=== PATIENT | male | born 1955 | race Caucasian/White ===

== ENCOUNTER → 2016-05-27 | Outpatient (CLI) | payer OTHER ==
[2016-05-27 08:57] LABS: MEAN CORPUSCULAR HGB CONC 34.6 g/dl (32.0-36.5); MEAN CORPUSCULAR VOLUME 89.6 fl (80.0-96.0); RED CELL DISTRIBUTION WIDTH 12.6 % (11.5-14.5); WHITE BLOOD COUNT 5.8 K/mm3 (4.0-10.0)
[2016-05-27 09:20] LABS: ALBUMIN 3.9 GM/DL (3.2-5.2); ALKALINE PHOSPHATASE 97 U/L (45-117); ALT/SGPT 49 U/L (12-78); ANION GAP 8 MEQ/L (8-16); AST/SGOT 26 U/L (15-37); BILIRUBIN,TOTAL 0.5 MG/DL (0.2-1.0); BLOOD UREA NITROGEN 14 MG/DL (7-18); CALCIUM LEVEL 8.2 MG/DL (8.5-10.1); CARBON DIOXIDE LEVEL 28 MEQ/L (21-32); CHLORIDE LEVEL 108 MEQ/L (98-107); CHOLESTEROL LEVEL 165 MG/DL (<200); FERRITIN 69 NG/ML (26-388); GLOMERULAR FILTRATION RATE > 60.0 (>56); GLUCOSE, FASTING 85 MG/DL (70-105); PERCENT SATURATION 41.7 % (19.7-37.4); POTASSIUM SERUM 4.1 MEQ/L (3.5-5.1); SODIUM LEVEL 144 MEQ/L (136-145); TOTAL IRON BINDING CAPACITY 345 UG/DL (250-450); TOTAL PROTEIN 6.2 GM/DL (6.4-8.2); TRIGLYCERIDES LEVEL 131 MG/DL (<150)
[2016-05-28 10:56] LABS: VITAMIN B12 LEVEL 515 PG/ML (247-911)
== END ==
LOC: M LAB 08:35
DX: K91.2 Postsurgical malabsorption, not elsewhere classified (principal); E55.9 Vitamin D deficiency, unspecified; R73.01 Impaired fasting glucose

== ENCOUNTER 2016-06-30 19:48 | Emergency (ER) | payer OTHER ==
[~2016-06-30] VITALS: Ht 172.7 cm; Wt 104.3 kg
[2016-06-30] MEDS ORDERED: CITA20TA4 (20:21)
[2016-06-30] MEDS ORDERED: NEXI40CA PO (20:21)
[2016-06-30] MEDS ORDERED: BUPR150T3 (20:21)
[2016-06-30] MEDS ORDERED: ONDANSETRON 4MG/2ML VIAL (J2405) IV ONE (21:45)
[2016-06-30] MEDS ORDERED: KETOROLAC 30 MG/ML VIAL (J1885) IV ONE (21:45)
--- NOTE | 2016-06-30 22:30 | REPUSA ---
CLINICAL HISTORY: Right side abdominal pain. TECHNIQUE: CT abdomen and pelvis without contrast. COMPARISON: November 03, 2011 CT ABDOMEN WITHOUT CONTRAST: Lung bases: No lung base infiltrate or effusion. Stomach: Surgical changes of gastric bypass. Liver: No intrahepatic ductal dilation. Gallbladder: Normally distended. Pancreas: No pancreatic duct dilation. Bowel loops: Nondistended. Spleen: Normal size. Adrenals: Normal size. Right kidney: Minute 2 mm stone without hydronephrosis. Left kidney: No stones or hydronephrosis. The stones demonstrated on the prior exam are no longer vis ible possibly status post lithotripsy. Aorta: Normal caliber. Peritoneum: No free air. CT PELVIS WITHOUT CONTRAST: Colon: Nondistended. Appendix: Normal appendix is seen. Bladder: Normally distended. Pelvic organs: Unremarkable. Peritoneum: No fluid. Skeleton: No acute findings. IMPRESSION: Right-sided nephrolithiasis without ureteral stones or hydronephrosis.
[2016-06-30 22:38] LABS: BASO % 0.7 % (0.0-1.0); EOS # 0.3 K/mm3 (0.0-0.50); EOS % 3.8 % (0.0-3.0); LARGE UNSTAINED CELL # 0.2 K/mm3 (0.0-0.4); LARGE UNSTAINED CELL % 2.3 % (0.0-4.0); LYMPH # 2.6 K/mm3 (1.5-4.5); LYMPH % 32.7 % (24.0-44.0); MEAN CORPUSCULAR HEMOGLOBIN 31.8 pg (27.0-33.0); MEAN CORPUSCULAR HGB CONC 35.3 g/dl (32.0-36.5); MEAN CORPUSCULAR VOLUME 90.2 fl (80.0-96.0); MONO # 0.5 K/mm3 (0.0-0.8); MONO % 6.2 % (0.0-5.0); NEUTROPHILS # 4.1 K/mm3 (1.8-7.7); NEUTROPHILS % 54.4 % (36.0-66.0); PLATELET COUNT, AUTOMATED 199 k/mm3 (150-450); RED CELL DISTRIBUTION WIDTH 12.6 % (11.5-14.5); WHITE BLOOD COUNT 7.5 K/mm3 (4.0-10.0)
[2016-06-30 23:11] VITALS: BP 142/79
[2016-06-30 23:14] LABS: ALBUMIN/GLOBULIN RATIO 1.54 (1.00-1.93); ALKALINE PHOSPHATASE 88 U/L (45-117); ALT/SGPT 37 U/L (12-78); ANION GAP 8 MEQ/L (8-16); AST/SGOT 22 U/L (15-37); BILIRUBIN,DIRECT 0.1 MG/DL (0.0-0.2); BILIRUBIN,TOTAL 0.4 MG/DL (0.2-1.0); BLOOD UREA NITROGEN 16 MG/DL (7-18); CALCIUM LEVEL 8.5 MG/DL (8.5-10.1); CARBON DIOXIDE LEVEL 29 MEQ/L (21-32); CHLORIDE LEVEL 108 MEQ/L (98-107); CREATININE FOR GFR 1.01 MG/DL (0.70-1.30); GLOMERULAR FILTRATION RATE > 60.0 (>56); GLUCOSE, FASTING 84 MG/DL (70-105); POTASSIUM SERUM 4.3 MEQ/L (3.5-5.1); SODIUM LEVEL 145 MEQ/L (136-145); TOTAL PROTEIN 6.6 GM/DL (6.4-8.2)
== END 2016-06-30 23:52 | disposition home or self-care (01) ==
LOC: M ED 20:39
DX: N23 Unspecified renal colic (principal); E86.0 Dehydration; K21.9 Gastro-esophageal reflux disease without esophagitis; F32.9 Major depressive disorder, single episode, unspecified; Z98.84 Bariatric surgery status; Z87.442 Personal history of urinary calculi; Z79.899 Other long term (current) drug therapy; Z88.0 Allergy status to penicillin; Z88.5 Allergy status to narcotic agent; Z88.6 Allergy status to analgesic agent
CPT/HCPCS: 74176; 80048; 80076; 81001; 85025; 87086; 96374; 96375; 99283; J1885

== ENCOUNTER → 2017-05-02 | Outpatient (CLI) | payer OTHER | LOC: M WUC 09:28 | DX: R05 Cough (principal) | CPT/HCPCS: 71046 ==

== ENCOUNTER 2018-02-02 13:48 | Emergency (ER) | payer OTHER | END 2018-02-02 14:37 | disposition home or self-care (01) | LOC: M ED 13:48 | DX: S67.02XA Crushing injury of left thumb, initial encounter (principal); W27.8XXA Contact with other nonpowered hand tool, initial encounter; Y92.009 Unspecified place in unspecified non-institutional (private) residence as the place of occurrence of the external cause; Y93.89 Activity, other specified; I10 Essential (primary) hypertension; K21.9 Gastro-esophageal reflux disease without esophagitis; Z88.8 Allergy status to other drugs, medicaments and biological substances; Z88.0 Allergy status to penicillin; Z88.5 Allergy status to narcotic agent; Z79.899 Other long term (current) drug therapy | CPT/HCPCS: 73140 ==

== ENCOUNTER 2018-03-25 08:02 | Day surgery (SDC) | payer OTHER ==
[~2018-03-25 08:02] MED LIST: PROPOFOL 200 MG/20 ML VIAL As Ordered
[2018-03-25] MEDS ORDERED: NS 1,000 ML IV (09:00)
== END 2018-03-25 10:16 | disposition home or self-care (01) ==
LOC: M OPP 10:16
DX: Z12.11 Encounter for screening for malignant neoplasm of colon (principal); Q43.8 Other specified congenital malformations of intestine
CPT/HCPCS: 45378

== ENCOUNTER → 2019-05-25 | Outpatient (CLI) | payer OTHER ==
[~2019-05-25] MED LIST changes: +BUPR150T3; +CALCCHW8 PO; +CEPH250T PO; +CITA20TA6; +CLAR10CA3 PO; +MULT1CHW44 PO; +MULT1TAB10 PO; +NEXI40CA PO; -PROPOFOL 200 MG/20 ML VIAL As Ordered; +TYLE325T5 PO; +VITA100067 PO
[2019-05-25 13:03] LABS: HEMATOCRIT 43.5 % (42.0-52.0); HEMOGLOBIN 15.1 g/dl (13.5-17.5); MEAN CORPUSCULAR HEMOGLOBIN 31.4 pg (27.0-33.0); MEAN CORPUSCULAR HGB CONC 34.7 g/dl (32.0-36.5); MEAN CORPUSCULAR VOLUME 90.4 fl (80.0-96.0); PLATELET COUNT, AUTOMATED 221 10^3/uL (150-450); RED BLOOD COUNT 4.81 10^6/uL (4.30-6.10); WHITE BLOOD COUNT 4.7 10^3/uL (4.0-10.0)
[2019-05-25 13:17] LABS: ALT/SGPT 35 U/L (12-78); BILIRUBIN,TOTAL 0.6 MG/DL (0.2-1.0); BLOOD UREA NITROGEN 21 MG/DL (7-18); CALCIUM LEVEL 8.8 MG/DL (8.8-10.2); CARBON DIOXIDE LEVEL 30 MEQ/L (21-32); CHLORIDE LEVEL 108 MEQ/L (98-107); CHOLESTEROL LEVEL 139 MG/DL (<200); CHOLESTEROL RISK RATIO 2.895 (<5); CREATININE FOR GFR 1.05 MG/DL (0.70-1.30); FERRITIN 49 NG/ML (26-388); GLOMERULAR FILTRATION RATE > 60.0 (>49); GLUCOSE, FASTING 81 MG/DL (70-100); HDL CHOLESTEROL 48 MG/DL (>40); IRON (FE) 112 UG/DL (65-175); LDL CHOLESTEROL 70 MG/DL (<100); NON-HDL-C 91 MG/DL; PERCENT SATURATION 33.4 % (19.7-50.0); POTASSIUM SERUM 3.8 MEQ/L (3.5-5.1); SODIUM LEVEL 142 MEQ/L (136-145); TOTAL IRON BINDING CAPACITY 335 UG/DL (250-450); TOTAL PROTEIN 6.6 GM/DL (6.4-8.2); TRIGLYCERIDES LEVEL 106 MG/DL (<150)
[2019-05-25 13:25] LABS: FOLATE 16.2 NG/ML (>5.4); TOTAL 25(OH) VITAMIN D 39.7 NG/ML (30.0-100.0)
[2019-05-25 13:31] LABS: VITAMIN B12 LEVEL 953 PG/ML (247-911)
[2019-05-25 13:36] LABS: HEMOGLOBIN A1c 5.1 %
== END ==
LOC: M LAB 10:56
PROVIDERS: ATTEND Physician Assistant Medical
DX: K91.2 Postsurgical malabsorption, not elsewhere classified (principal); Z13.0 Encounter for screening for diseases of the blood and blood-forming organs and certain disorders involving the immune mechanism; Z98.84 Bariatric surgery status; Z13.220 Encounter for screening for lipoid disorders

== ENCOUNTER → 2020-01-17 | Outpatient (CLI) | payer OTHER ==
[~2020-01-17] MED LIST changes: +OYST1TAB PO
== END ==
LOC: M LABSMTC 10:19
PROVIDERS: ATTEND Anesthesiology
DX: Z01.812 Encounter for preprocedural laboratory examination (principal); Z20.828 Contact with and (suspected) exposure to other viral communicable diseases
CPT/HCPCS: C9803; U0003

== ENCOUNTER 2020-01-22 08:51 | Day surgery (SDC) | payer OTHER ==
[~2020-01-22] VITALS: Ht 172.7 cm; Wt 107.2 kg
[~2020-01-22 08:51] MED LIST changes: +NS 1,000 ML IV ONE
[2020-01-22] MEDS ORDERED: LIDOCAINE 2% 100MG/5ML SDV (FOR ANES.) As Ordered ONE (08:58)
[2020-01-22] MEDS ORDERED: propofoL 200 MG/20 ML VIAL As Ordered ONE ×2 (08:58→10:31)
--- NOTE | 2020-01-22 10:56 | ROOR ---
Patient Name: Arcenio Arias Procedure Date: 01/22/2020 10:16 AM Date of : 1955 Age: 64 Room: [facility] Gender: Male Note Status: Finalized Procedure: Colonoscopy Indications: High risk colon cancer surveillance: Personal history of colonic polyps. Hx recent anal fissure/pain, blood Providers: Yosvany GARZON MD Referring MD: RAS WHITTEN MD Requesting Provider: Medicines: Monitored Anesthesia Care Complications: No immediate complications. Procedure: Pre-Anesthesia Assessment: - The heart rate, respiratory rate, oxygen saturations, blood pressure, adequacy of pulmonary ventilation, and response to care were monitored throughout the procedure. The Colonoscope was introduced through the anus and advanced to 5 cm into the ileum. The colonoscopy was performed without difficulty. The patient tolerated the procedure well. The quality of the bowel preparation was good. Findings: The perianal and digital rectal examinations were normal. Internal hemorrhoids were found during retroflexion. The hemorrhoids were medium-sized. The colon (entire examined portion) was redundant. The colon (entire examined portion) appeared normal. Impression: - Internal hemorrhoids. (Fissure is not seen today.) - Redundant colon. - The entire colon is otherwise normal. - No specimens collected. Recommendation: - Repeat colonoscopy in 5 years for surveillance. Yosvany Garzon MD Yosvany GARZON MD 01/22/2020 10:55:42 AM Electronically signed by Yosvany GARZON MD Number of Addenda: 0 Note Initiated On: 01/22/2020 10:16 AM Estimated Blood Loss: Estimated blood loss: none.
[2020-01-22 11:15] VITALS: BP 134/83
== END 2020-01-22 11:29 | disposition home or self-care (01) ==
LOC: M OPP 08:51
PROVIDERS: ATTEND Internal Medicine Gastroenterology
DX: Z12.11 Encounter for screening for malignant neoplasm of colon (principal); Z86.010 Personal history of colon polyps; K64.8 Other hemorrhoids; Q43.8 Other specified congenital malformations of intestine; R12 Heartburn; F41.9 Anxiety disorder, unspecified; F32.9 Major depressive disorder, single episode, unspecified; M19.90 Unspecified osteoarthritis, unspecified site; K21.9 Gastro-esophageal reflux disease without esophagitis; Z88.0 Allergy status to penicillin; Z88.1 Allergy status to other antibiotic agents; Z88.5 Allergy status to narcotic agent; Z79.899 Other long term (current) drug therapy; Z98.84 Bariatric surgery status; Z82.49 Family history of ischemic heart disease and other diseases of the circulatory system; Z83.3 Family history of diabetes mellitus; Z80.52 Family history of malignant neoplasm of bladder

== ENCOUNTER → 2020-07-27 | Outpatient (CLI) | payer OTHER ==
[~2020-07-27] MED LIST changes: +BUPR150T12; -BUPR150T3; -NS 1,000 ML IV ONE
[2020-07-27 09:48] LABS: HEMATOCRIT 45.8 % (42.0-52.0); HEMOGLOBIN 15.8 g/dl (13.5-17.5); MEAN CORPUSCULAR HEMOGLOBIN 31.3 pg (27.0-33.0); MEAN CORPUSCULAR HGB CONC 34.5 g/dl (32.0-36.5); MEAN CORPUSCULAR VOLUME 90.9 fl (80.0-96.0); PLATELET COUNT, AUTOMATED 219 10^3/uL (150-450); RED BLOOD COUNT 5.04 10^6/uL (4.30-6.10)
[2020-07-27 10:24] LABS: HEMOGLOBIN A1c 4.9 %
[2020-07-27 12:19] LABS: ALT/SGPT 38 U/L (12-78); BILIRUBIN,TOTAL 0.6 MG/DL (0.2-1.0); BLOOD UREA NITROGEN 15 MG/DL (7-18); CALCIUM LEVEL 8.7 MG/DL (8.8-10.2); CARBON DIOXIDE LEVEL 28 MEQ/L (21-32); CHLORIDE LEVEL 107 MEQ/L (98-107); CHOLESTEROL LEVEL 165 MG/DL (<200); CREATININE FOR GFR 0.95 MG/DL (0.70-1.30); FERRITIN 27 NG/ML (26-388); FOLATE 16.2 NG/ML (>5.4); GLOMERULAR FILTRATION RATE > 60.0 (>49); GLUCOSE, FASTING 85 MG/DL (70-100); HDL CHOLESTEROL 60 MG/DL (>40); IRON (FE) 138 UG/DL (65-175); LDL CHOLESTEROL 79 MG/DL (<100); NON-HDL-C 105 MG/DL; PERCENT SATURATION 36.9 % (19.7-50.0); POTASSIUM SERUM 4.1 MEQ/L (3.5-5.1); SODIUM LEVEL 141 MEQ/L (136-145); TOTAL 25(OH) VITAMIN D 26.7 NG/ML (30.0-100.0); TOTAL IRON BINDING CAPACITY 374 UG/DL (250-450); TOTAL PROTEIN 6.6 GM/DL (6.4-8.2); TRIGLYCERIDES LEVEL 132 MG/DL (<150); VITAMIN B12 LEVEL 1130 PG/ML (247-911)
== END ==
LOC: M LAB 08:45
PROVIDERS: ATTEND Internal Medicine
DX: K91.2 Postsurgical malabsorption, not elsewhere classified (principal)

== ENCOUNTER 2020-10-13 15:00 | Inpatient (IN) | payer OTHER ==
[~2020-10-13] VITALS: Ht 172.7 cm; Wt 109.0 kg
[~2020-10-13 15:00] MED LIST changes: -BUPR150T12; +BUPR150T12 PO; -CITA20TA6; +CITA20TA6 PO
[2020-10-13] MEDS ORDERED: CLIN150C15 PO (15:17)
[2020-10-13] MEDS ORDERED: PLAV1TAB2 PO (15:17)
[2020-10-13] MEDS ORDERED: GABA-282 PO (15:17)
[2020-10-13] MEDS ORDERED: VANCOMYCIN HCL 2,000 MG in D5W 500 ML IV ONE (19:05)
[2020-10-13] MEDS ORDERED: MORPHINE 4 MG/ML 1ML VIAL/SYRINGE (J2270) IV ONE (19:15)
--- NOTE | 2020-10-13 19:40 | REP ---
INDICATION: NECROSIS/S/P SURGERY. COMPARISON: None. TECHNIQUE: Four views of the 1st 3 digits of the toes of the right foot FINDINGS: There is an age undetermined fracture of the medial base of the proximal phalanx of the 2nd digit. There appears to been some sort of surgery involving the 3rd digit. I have no details or priors. There appears to been partial amputation of the proximal phalanx of the 3rd digit but with preservation of the middle and distal phalanges. Degenerative changes are seen involving the 1st metatarsophalangeal joint. IMPRESSION: As above. Obtain priors. <Electronically signed by Jalil Miranda > 10/13/201935
[2020-10-13 19:55] LABS: BASO % 0.5 % (0.0-1.0); EOS # 0.2 10^3/uL (0.0-0.5); EOS % 2.3 % (0.0-3.0); HEMATOCRIT 45.9 % (42.0-52.0); HEMOGLOBIN 15.8 g/dl (13.5-17.5); LYMPH # 1.5 10^3/uL (1.5-5.0); LYMPH % 18.5 % (24.0-44.0); MEAN CORPUSCULAR HEMOGLOBIN 31.4 pg (27.0-33.0); MEAN CORPUSCULAR HGB CONC 34.4 g/dl (32.0-36.5); MEAN CORPUSCULAR VOLUME 91.3 fl (80.0-96.0); MONO # 0.6 10^3/uL (0.0-0.8); NEUTROPHILS # 5.7 10^3/uL (1.5-8.5); NEUTROPHILS % 71.4 % (36.0-66.0); PLATELET COUNT, AUTOMATED 229 10^3/uL (150-450); RED BLOOD COUNT 5.03 10^6/uL (4.30-6.10)
[2020-10-13] MEDS ORDERED: VANCOMYCIN HCL 1,000 MG, VIAL MATE ADAPTER 1 EACH in NS 250 ML IV ONE ×2 (20:00→21:00)
--- NOTE | 2020-10-13 20:06 | REPVR ---
PROCEDURE INFORMATION: Exam: US Duplex Right Lower Extremity Veins, Limited Exam date and time: 10/13/2020 8:01 PM Age: 65 years old Clinical indication: Swelling (edema) of limb; Lower extremity, right; Prior surgery; Surgery date: <1 month; Surgery type: Patient had surgery to RT toes on 09/30/2020; Additional info: Swelling pain, recent SX, RO clot TECHNIQUE: Imaging protocol: Real-time Duplex ultrasound of the Right Lower Extremity with 2-D farooq scale, color Doppler flow and spectral waveform analysis with image documentation. Limited exam was focused on the right lower extremity veins. COMPARISON: CR Toes 10/13/2020 6:17 PM FINDINGS: Right deep veins: Unremarkable. The common femoral, femoral, proximal profunda femoral and popliteal veins are patent without thrombus. Normal Doppler waveforms. Normal compressibility and/or augmentation response. Right superficial veins: Unremarkable. Saphenofemoral junction is patent without thrombus. Soft tissues: Lower leg edema. IMPRESSION: Lower leg edema. No DVT. Electronically signed by: Arthur Jimenez On 10/13/2020 20:06:12 PM
[2020-10-13 20:19] LABS: RSV AMPLIFICATION NEGATIVE (NEGATIVE)
[2020-10-13 20:24] LABS: ALT/SGPT 36 U/L (12-78); BILIRUBIN,DIRECT 0.2 MG/DL (0.0-0.2); BILIRUBIN,TOTAL 0.7 MG/DL (0.2-1.0); BLOOD UREA NITROGEN 17 MG/DL (7-18); CALCIUM LEVEL 8.6 MG/DL (8.8-10.2); CARBON DIOXIDE LEVEL 31 MEQ/L (21-32); CHLORIDE LEVEL 106 MEQ/L (98-107); CREATININE FOR GFR 0.93 MG/DL (0.70-1.30); GLOMERULAR FILTRATION RATE > 60.0 (>49); GLUCOSE, FASTING 89 MG/DL (70-100); POTASSIUM SERUM 4.3 MEQ/L (3.5-5.1); SODIUM LEVEL 141 MEQ/L (136-145); TOTAL PROTEIN 6.9 GM/DL (6.4-8.2)
[2020-10-13 20:41] LABS: ERYTHROCYTE SEDIMENTATION RATE 7 mm/hr (0-20)
[2020-10-13] MEDS ORDERED: CALC-211 PO (20:44)
[2020-10-13] MEDS ORDERED: VITMTA PO (20:44)
[2020-10-13] MEDS ORDERED: CLIN300C6 PO (20:44)
[2020-10-13] MEDS ORDERED: D31000TA2 PO (20:44)
[2020-10-13] MEDS ORDERED: ACET1TAB55 PO (20:44)
[2020-10-13] MEDS ORDERED: ONDANSETRON 4MG/2ML VIAL IV PRN (20:55)
[2020-10-13] MEDS ORDERED: MOM 30ML SUSPENSION UDC PO PRN (20:55)
[2020-10-13] MEDS ORDERED: MAALOX 30 ML SUSP *UDC PO PRN (20:55)
[2020-10-13] MEDS ORDERED: ACETAMINOPHEN TAB 650MG DOSE (2X325MG) PO PRN (20:55)
--- NOTE | 2020-10-13 21:10 | HPEPDOC ---
[facility] Medical History & Physical Date of Admission Oct 13, 2020 Date of Service: Oct 13, 2020 History and Physical CHIEF COMPLAINT: R foot pain HISTORY OF PRESENT ILLNESS: 66 yo M with a PMHX of GERD, nephrolithiasis, Meni ere's disease, presented to ER with c/o pain, erythema and black color of 2nd R toe, with worsening erythema extending to midfoot. Patient states he underwent surgery with roll slicing machine tender Dr. Rivas in [place] on 09/30/20 for hammertoe correction of 2nd toe, as well as removal of bone spur? or possible amputation of distal phalanx of 3rd toe. He developed worsening pain on 2nd toe on 10/09/20 but did examine foot as was told not to remove dressings until follow up on 10/12/20. On evaluation by Dr. Rivas, concern for cellulitis, was started on clindamycin as well as plavix for suspected thrombosis. Concern for gangrene of distal 2nd toe with possible osteomyelitis and surrounding cellulitis. Patient had no fever or leukocytosis on presentation. Was given empiric vancomycin. Dr. Dunn was consulted from ER. MRI foot ordered to al for possible osteomyelitis. Patient will be admitted to hospitalist service. PAST MEDICAL HISTORY: GERD anger/behavioural disorder nephrolithiasis bilateral Meniere's disease PAST SURGICAL HISTORY: Bilateral carpal tunnel release hx of gastric bypass SOCIAL HISTORY: former smoker, quite 30 years ago denies etoh use, denies illicit drug use FAMILY HISTORY: Hx of DM in mother, Hx of CHF in father, Brother - CAD, s/p cabg, prostate cancer Brother - bladder cancer ALLERGIES: Please see below. REVIEW OF SYSTEMS: 10 point ROS completed, relevant findings are noted in the HPI. HOME MEDICATIONS: Please see below. PHYSICAL EXAMINATION: VITAL SIGNS: please see below GENERAL APPEARANCE: comfortable in bed, non toxic appearance HEENT: PERRLA, EOMI, MMM CARDIOVASCULAR: RRR, normal S1, S2 LUNGS: CTAB, no wheeze, no rales. ABDOMEN: soft, non tender, BS+, non distended. MUSCULOSKELETAL: R foot 2nd toe distal necrosis/gangrene, 3rd to swollen, erythematous with fresh suture line. Area of erythema extending from the base of 2nd-4th toes to approximately mid foot. EXTREMITIES: No edema. Pulses 2+ bilaterally in both feet NEUROLOGICAL: no focal neuro deficit, CN2-12 intact PSYCHIATRIC: calm, pleasant, cooperative LABORATORY DATA: See below. IMAGING: RLE venous duplex (10/13/20): Lower leg edema. No DVT R toe XR (10/13/20): FINDINGS: There is an age undetermined fracture of the medial base of the proximal phalanx of the 2nd digit. There appears to been some sort of surgery involving the 3rd digit. I have no details or priors. There appears to been partial amputation of the proximal phalanx of the 3rd digit but with preservation of the middle and distal phalanges. Degenerative changes are seen involving the 1st metatarsophalangeal joint. IMPRESSION: As above. Obtain priors. MICROBIOLOGY: Please see below. ASSESSMENT: 66 yo M with a PMHX of GERD, nephrolithiasis, Meniere's disease, presented to ER with c/o pain, erythema and black color of 2nd R toe, with wo rsening erythema extending to midfoot. Possible post surgical complication. MRI foot pending to eval for osteomyelitis. On empiric vancomycin. Dr. Dunn consulted. . PLAN: R foot cellulitis with gangrene, possible osteomyelitis - s/p R 2nd toe hammertoe surgery, 3rd toe bone spurr excision, possible distal phalanx amp with Dr. Rivas in [place]. Patient followed up on 10/12/20, at which time hardware was removed, and due to erythema and suspected cellulitis, patient was started on clindamycin and plavix? thought to be due to a possible clot? imaging was not performed. - concern for worsening infection, possible osteomyelitis - venous duplex negative for DVT - MRI foot ordered - will trend inflammatory markers. - Dr. Dunn consulted from ER. Recommended to stop plavix. Will see patient on 10/14/20 - will make patient NPO at midnight - s/p vancomycin in ER, will continue - f/u blood cultures GERD - c/w pantoprazole Hx of anger/behaviours - continue home medications: citalopram, bupropion DVT ppx: SCDs. TEDs. Hold heparin as possibility of OR on 10/14/20. Dispo: pending clinical improvement Vital Signs Vital Signs Date Time Temp Pulse Resp B/P (MAP) Pulse Ox O2 Delivery O2 Flow Rate FiO2 10/13/20 20:10 98.2 84 20 130/74 (92) 97 146/77 (100) 10/13/20 19:55 Room Air Laboratory Data Labs 24H Laboratory Tests 2 10/13/20 19:31: Immature Granulocyte % (Auto) 0.3, Neutrophils (%) (Auto) 71.4H, Lymphocytes (%) (Auto) 18.5L, Monocytes (%) (Auto) 7.0, Eosinophils (%) (Auto) 2.3, Basophils (%) (Auto) 0.5, Neutrophils # (Auto) 5.7, Lymphocytes # (Auto) 1.5, Monocytes # (Auto) 0.6, Eosinophils # (Auto) 0.2, Basophils # (Auto) 0.0, Nucleated Red Blood Cells % (auto) 0.0, Erythrocyte Sedimentation Rate 7, Anion Gap 4L, Glomerular Filtration Rate > 60.0, Lactic Acid Level 1.1, Calcium Level 8.6L, Total Bilirubin 0.7, Direct Bilirubin 0.2, Aspartate Amino Transf (AST/SGOT) 20, Alanine Aminotransferase (ALT/SGPT) 36, Alkaline Phosphatase 104, C-Reactive Protein, Quantitative 2.10H, Total Protein 6.9, Albumin 4.0, Albumin/Globulin Ratio 1.4, Coronavirus (COVID-19)(PCR) NEGATIVE, Influenza Type A (RT-PCR) NEGATIVE, Influenza Type B (RT-PCR) NEGATIVE, Respiratory Syncytial Virus (PCR) NEGATIVE CBC/BMP Laboratory Tests 10/13/20 19:31 Microbiology Microbiology 10/13/20 Blood Culture, Received Pending 10/13/20 Blood Culture, Received Pending Home Medications Scheduled Bupropion Hcl (Bupropion Xl) 150 Mg Tab, 150 MG PO BID Calcium Carbonate (Calcium) 600 Mg Tablet, 600 MG PO DAILY Cholecalciferol (Vitamin D3) (Vitamin D3) 1,000 Unit Tablet, 1,000 UNITS PO DAILY Citalopram Hydrobromide (Citalopram HBr) 20 Mg Tab, 20 MG PO DAILY Clindamycin HCl (Clindamycin HCl) 300 Mg Capsule, 300 MG PO BID STARTED 10/12/20 FOR 20 DAYS Clopidogrel Bisulfate (Plavix) 75 Mg Tablet, 75 MG PO DAILY Esomeprazole Magnesium (Nexium) 40 Mg Cap, 40 MG PO DAILY Gabapentin (Gabapentin) 300 Mg Capsule, 300 MG PO TID Loratadine (Claritin) 10 Mg Cap, 10 MG PO DAILY Multivitamins (Thera M Plus Tablet) 1 Each Tablet, 1 TAB PO DAILY Scheduled PRN Acetaminophen (Acetaminophen) 325 Mg Tablet, 650 MG PO QID PRN for PAIN LEVEL 1- 4 Allergies Coded Allergies: Penicillins (Verified Allergy, Severe, ANAPHYLAXIS, 10/13/20) ampicillin (Verified Allergy, Severe, ANAPHYLAXIS, 10/13/20) codeine (Verified Allergy, Severe, THROAT SWELLING, DIFF BREATHING, 10/13/20) hydrocodone (Verified Allergy, Severe, THROAT SWELLING, DIFF BREATHING, 10/13/20) oxycodone (Verified Allergy, Severe, SOB, DIFF BREATHING, 10/13/20) levofloxacin (Verified Allergy, Unknown, anaphylaxis, 10/13/20) A-FIB/CHADSVASC A-FIB History Current/History of A-Fib/PAF?: No LEYLA MALAGON MD Oct 13, 2020 21:10
[2020-10-13] MEDS ORDERED: traMADol 50 MG TAB PO PRN (21:40)
[2020-10-13 23:20] VITALS: BP 152/74
[2020-10-13] MEDS: buPROPion **XL** TABLET 150MG (WELLBUTRIN XL) PO SCH (23:32)
[2020-10-13] MEDS: GABAPENTIN 300 MG CAP PO SCH (23:32)
[2020-10-13] MEDS: DOCUSATE SODIUM 100MG CAPSULE PO SCH (23:33)
[2020-10-14] MEDS ORDERED: KETOROLAC TROMETHAMINE 10 MG TAB PO PRN (00:20)
--- NOTE | 2020-10-14 00:54 | REPVR ---
PROCEDURE INFORMATION: Exam: MR Right Lower Extremity Other Than Joint Without Contrast; Foot Exam date and time: 10/13/2020 11:17 PM Age: 65 years old Clinical indication: Pain and condition or disease; Other: Black toe; Right; Prior surgery; Surgery date: 3-7 days post-operative; Patient HX: Hammer toe correction with pin in 2nd toe on RT foot 09/30/20. 2 days ago toe started loosing feeling swelling and going black, redness in dorsal surface of RT foot by toes; Additional info: Black toe R foot 2nd digit TECHNIQUE: Imaging protocol: MR of the Right lower extremity without contrast. Exam focused on the foot. COMPARISON: Right toe radiographs October 13, 2020. FINDINGS: SOFT TISSUES There is subcutaneous fluid sensitive signal hyperintensity circumferentially around the foot, greatest dorsal laterally and extending proximal to the level of imaging. This could be secondary to soft tissue edema or cellulitis. There is fluid sensitive signal hyperintensity along plantar intermuscular fascia as well as plantar musculature and intrinsic muscles of the foot. This could be secondary to soft tissue injury or fasciitis and myositis. Soft tissue gas is not reliably evaluated by this technique, although not obviously identified. No superficial or deep drainable fluid collection or abscess is seen. Some fluid is noted along the flexor tendons but no significant circumferential tendon sheath fluid to suggest tenosynovitis. No evidence of a tendon rupture is seen. The plantar fascia is intact. No plantar fascial fibroma seen. The distal Achilles tendon is intact without evidence of degeneration. There is mild retrocalcaneal bursitis. ARTICULAR No articular malalignment is seen. The Lisfranc ligament appears intact. Small posterior subtalar joint effusion noted. Moderately large tibiotalar joint effusion noted. If there is any suspicion for early septic involvement of a joint, aspiration and culture is advised for diagnosis. OSSEOUS Distal tibiofibular congruency is maintained. There is a 7.6 mm by 16.3 mm osteochondral defect along the medial talar dome, likely related to an old injury. There is some reactive marrow edema within the adjacent talus. Articular cartilage otherwise at the tibiotalar joint is preserved. Subtalar cartilage is preserved. No evidence of an osseous tarsal coalition seen. Mild degenerative changes of the hindfoot and midfoot noted. Mild ganglion cystic change noted within the calcaneus adjacent to the intertarsal ligament attachment. There is mild focal fluid sensitive signal hyperintensity along the dorsomedial aspect of the cuboid bone of uncertain significance. This may be reactive or may represent a bone contusion if there has been recent trauma. There is subchondral fluid sensitive signal hyperintensity along both sides of the 2nd tarsometatarsal articulation consistent with degenerative change. Cystic changes are noted at the bases of the 2nd and 3rd metatarsals consistent with degenerative change. 1st digit Osteoarthritic changes and bony proliferative changes noted at the 1st metatarsal head. There is deformity of the 1st proximal phalanx with an intrinsic cyst noted but no surrounding edema. This could be postoperative, posttraumatic and/or degenerative. No signal changes in the 1st toe to suggest osteomyelitis. 2nd digit There is fluid sensitive signal hyperintensity within the distal aspect of the 2nd metatarsal, predominantly at the head with heterogeneous loss of normal anticipated T1 signal. Differential would include posttraumatic change, early avascular necrosis without subchondral collapse or osteomyelitis. There is a moderate-sized 2nd metatarsophalangeal joint effusion. If there is any suspicion for septic involvement of a joint, aspiration and culture is advised. There is mild fluid sensitive signal hyperintensity within the 2nd proximal phalanx which could be posttraumatic or related to osteomyelitis/infection. There is a small 2nd distal interphalangeal joint effusion. 3rd digit There is demarcated heterogeneous fluid sensitive signal hyperintensity involving the 3rd metatarsal head. This could be posttraumatic or related to or early avascular necrosis. Osteomyelitis cannot be excluded. There is fluid sensitive signal hyperintensity within the 3rd proximal phalanx which could be postsurgical or related to osteomyelitis. There appears to have been resection of the 3rd proximal phalangeal head. There is a small amount of focal fluid between the resected portion of the 3rd proximal phalanx and the adjacent middle phalanx. This is nonspecific but infected fluid cannot be excluded. There is a small 3rd distal interphalangeal joint effusion. 4th digit There is heterogeneous areas of fluid sensitive signal hyperintensity involving the base and distal shaft and head of the 4th proximal phalanx. There is fluid sensitive signal hyperintensity throughout the 4th middle phalanx. There is loss of corresponding anticipated T1 marrow signal. Although this could be posttraumatic, appearance is worrisome for osteomyelitis. There is a small 4th distal interphalangeal joint effusion. 5th digit There are some marginal fluid sensitive signal changes at the lateral aspect of the 5th metatarsal head which may be related to osteoarthritis or early inflammatory/erosive change. No signal changes are seen within the 5th digit to suggest osteomyelitis. IMPRESSION: There are soft tissue signal changes which could be related to edema or cellulitis, fasciitis and myositis. Clinical and laboratory correlation is advised. For improved specificity, consideration could be given to pre and post contrast T1 fat saturated imaging or white blood cell scan. There are osseous signal changes within the 2nd digit, 3rd digit and 4th digit as discussed above, worrisome for osteomyelitis. Differential as discussed above. There is a small amount of focal fluid between the resected distal 3rd proximal phalanx and adjacent middle phalanx which could be postoperative but infected fluid cannot be excluded. Joint effusions are noted as discussed above. Although no bone destruction is seen, if there is suspicion for early septic involvement of a joint, aspiration and culture is advised. Likely chronic osteochondral defect at the medial talar dome with mild surrounding reactive marrow edema. Vascularity to the foot/toes is not evaluated by this technique. Given the patient's history of "black toe", if vascular compromise is suspected as a cause consider CT angiogram or dedicated angiogram/runoff for further evaluation. Other causes of gangrene should also be considered as they cannot be deciphered by this study. Other findings discussed above. Electronically signed by: Simon Skelton On 10/14/2020 00:54:07 AM
[2020-10-14] MEDS ORDERED: ACETAMINOPHEN TAB 650MG DOSE (2X325MG) PO PRN (02:20)
[2020-10-14] MEDS: VANCOMYCIN HCL 1,000 MG, VIAL MATE ADAPTER 1 EACH in NS 250 ML IV SCH ×3 (03:17→20:14)
[2020-10-14] MEDS: ACETAMINOPHEN 500 MG TAB PO PRN (03:17)
[2020-10-14 05:51] LABS: BASO # 0.1 10^3/uL (0.0-0.2); BASO % 0.6 % (0.0-1.0); EOS # 0.2 10^3/uL (0.0-0.5); EOS % 3.1 % (0.0-3.0); HEMATOCRIT 40.1 % (42.0-52.0); HEMOGLOBIN 13.9 g/dl (13.5-17.5); LYMPH % 25.8 % (24.0-44.0); MEAN CORPUSCULAR HEMOGLOBIN 31.6 pg (27.0-33.0); MEAN CORPUSCULAR HGB CONC 34.7 g/dl (32.0-36.5); MEAN CORPUSCULAR VOLUME 91.1 fl (80.0-96.0); MONO # 0.7 10^3/uL (0.0-0.8); MONO % 9.2 % (2.0-8.0); NEUTROPHILS # 4.7 10^3/uL (1.5-8.5); NEUTROPHILS % 60.9 % (36.0-66.0); PLATELET COUNT, AUTOMATED 188 10^3/uL (150-450); WHITE BLOOD COUNT 7.7 10^3/uL (4.0-10.0)
[2020-10-14] MEDS ORDERED: KETOROLAC 30 MG/ML 1ML VIAL IV SCH (06:00)
[2020-10-14 06:11] LABS: ERYTHROCYTE SEDIMENTATION RATE 10 mm/hr (0-20)
[2020-10-14 06:12] LABS: ALBUMIN 3.3 GM/DL (3.2-5.2); ALT/SGPT 29 U/L (12-78); BILIRUBIN,TOTAL 0.7 MG/DL (0.2-1.0); BLOOD UREA NITROGEN 17 MG/DL (7-18); CALCIUM LEVEL 8.6 MG/DL (8.8-10.2); CARBON DIOXIDE LEVEL 32 MEQ/L (21-32); CHLORIDE LEVEL 105 MEQ/L (98-107); CHOLESTEROL LEVEL 156 MG/DL (<200); CHOLESTEROL RISK RATIO 2.888 (<5); CREATININE FOR GFR 0.98 MG/DL (0.70-1.30); GLOMERULAR FILTRATION RATE > 60.0 (>49); GLUCOSE, FASTING 91 MG/DL (70-100); HDL CHOLESTEROL 54 MG/DL (>40); LDL CHOLESTEROL 86 MG/DL (<100); NON-HDL-C 102 MG/DL; POTASSIUM SERUM 4.4 MEQ/L (3.5-5.1); SODIUM LEVEL 139 MEQ/L (136-145); TOTAL PROTEIN 6.2 GM/DL (6.4-8.2); TRIGLYCERIDES LEVEL 78 MG/DL (<150)
[2020-10-14] MEDS ORDERED: NALOXONE INJ 0.4MG/1ML VIAL (J2310 PER 1MG) IV PRN (07:55)
[2020-10-14] MEDS ORDERED: D5W/0.45% SODIUM CHLORIDE 1,000 ML IV SCH (07:55)
[2020-10-14 08:00] VITALS: BP 146/79
[2020-10-14] MEDS ORDERED: HYDROmorphone 2 MG TAB PO ONE (08:00)
[2020-10-14] MEDS ORDERED: HYDROMORPHONE HCL 0.5 MG/ 0.5 ML SYRINGE (J1170 PER 1) IV ONE (08:00)
[2020-10-14] MEDS: VITAMIN D 1,000 INTERNATIONAL UNITS TABLET PO SCH (08:13)
[2020-10-14] MEDS: LORATADINE 10 MG TAB PO SCH (08:13)
[2020-10-14] MEDS: MULTIVITAMINS/MINERALS THERAP 1 TAB PO SCH (08:13)
[2020-10-14] MEDS: buPROPion **XL** TABLET 150MG (WELLBUTRIN XL) PO SCH ×2 (08:13→20:14)
[2020-10-14] MEDS: CitaloPRAM (CeleXA) 20 MG TAB PO SCH (08:13)
[2020-10-14] MEDS: PANTOPRAZOLE 40MG VIAL (C9113 PER 1) IV SCH ×2 (08:13→20:14)
[2020-10-14] MEDS: DOCUSATE SODIUM 100MG CAPSULE PO SCH ×2 (08:13→20:15)
[2020-10-14] MEDS: GABAPENTIN 300 MG CAP PO SCH ×3 (08:13→20:15)
[2020-10-14] MEDS ORDERED: PANTOPRAZOLE 40MG TAB (PROTONIX) PO SCH (09:00)
[2020-10-14 09:28] VITALS: BP 124/73
[2020-10-14] MEDS ORDERED: LEVALBUTEROL 1.25 MG/0.5 ML CONCENTRATE NEB NEB ONE (09:35)
--- NOTE | 2020-10-14 09:49 | REP ---
INDICATION: nonhealing gangrenous right 2nd toe. COMPARISON: None. TECHNIQUE: Bilateral lower extremity arterial Doppler sonography. FINDINGS: TYSON is a normal bilaterally measured at 1.2 on the right and 1.2 on the left. Triphasic and biphasic arterial Doppler waveforms are noted throughout the lower extremity arterial tree bilaterally. Minimal plaquing is seen. No high-grade stenosis or occlusion is seen. Right lower extremity arterial Doppler velocity chart: Right ACUTE SPECIALIST PSV 68 cm/S Profundal 68 Proximal SFA 114 Mid SFA 88 Distal SFA 88 Popliteal 80 Proximal ALAN 78 Tibial-peroneal trunk 60 Proximal TRIMMER MACHINE 85 Distal TRIMMER MACHINE 81 Distal ALAN 87 Left lower extremity arterial Doppler velocity chart: Left ACUTE SPECIALIST PSV 86 cm/S Profundal 81 Proximal SFA 95 Mid SFA 82 Distal SFA 75 Popliteal 62 Proximal ALAN 65 Tibial-peroneal trunk 45 Proximal TRIMMER MACHINE 40 Distal TRIMMER MACHINE 76 Distal ALAN 52 IMPRESSION: No high-grade stenosis or occlusion. <Electronically signed by Roman Neil > 10/14/20 [id number]
[2020-10-14] MEDS: SUCRALFATE 1 GM TAB PO SCH ×4 (09:54→20:14)
[2020-10-14] MEDS ORDERED: methylPREDNISolone 125MG 2ML VIAL IV ONE (10:00)
[2020-10-14] MEDS ORDERED: diphenhydrAMINE 50MG/ML VIAL (J1200) IV ONE (10:00)
[2020-10-14] MEDS: KETOROLAC 30 MG/ML 1ML VIAL IV SCH ×3 (10:00→21:57)
[2020-10-14] MEDS ORDERED: LEVALBUTEROL 1.25 MG/0.5 ML CONCENTRATE NEB INH PRN (10:30)
[2020-10-14] MEDS ORDERED: HYDROmorphone 2 MG TAB PO PRN (12:00)
--- NOTE | 2020-10-14 12:22 | IPN ---
PROGRESS NOTE DATE: 10/13/2020 SUBJECTIVE: The patient complains of 10/10 pain in right foot without any radiation. No fever, chills overnight. NPO for amputation of the right 2nd toe today due to gangrene by Dr. Dunn. No other complaints this morning. OBJECTIVE: Temperature 98.9, pulse 80, respiratory rate 18, blood pressure 152/74, and 97% on room air. Generally awake, alert, oriented to person, place, and time; answering questions appropriately. No jugular venous distension (JVD), thyromegaly, cervical lymphadenopathy. Moist mucous membranes. Lungs are clear to auscultation. No wheezing, rales or rhonchi. Heart: S1, S2, sinus rhythm. Abdomen is soft, nontender, nondistended. Positive bowel sounds. Extremities: Right foot with gangrenous 2nd toe. Erythema noted on the dorsum of the foot midway into the mid foot. Diminished pulses bilaterally. Skin warm, dry and well perfused. Patient has a black eschar of the right 2nd toe. LABORATORY DATA AND IMAGING STUDIES: Microbiology all reviewed. ASSESSMENT AND PLAN: This is a 66-year-old male admitted on October 13 with history of reflux, nephrolithiasis, Meniere's disease, former smoker (quit 30 years ago), was seen by film writer, Dr. Rivas in [place], on 09/30/2020 for hammertoe correction of the 2nd toe and removal of a bone spur, and possible amputation of distal phalanx of the 3rd toe, developed worsening and pain of the 2nd toe on 10/09/2020 with follow up as outpatient on 10/12; however, patient began to have increasing erythema, pain and was started on clindamycin and Plavix for suspected thrombosis. Patient's 2nd toe became gangrenous with possible osteomyelitis and underlying cellulitis and was sent to the emergency room for amputation. 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 IMPRESSION: 1. 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 Patient is to have amputation today by film writer, Dr. Dunn, and has been kept NPO, IV fluids and hypoglycemic protocol. 2. Chronic neuropathy, on Neurontin; depression, on Wellbutrin regimen and antiemetics. Holding off on deep vein thrombosis (DVT) prophylaxis since the patient is going to the operating room. MTDD
[2020-10-14] MEDS ORDERED: ACETAMINOPHEN 500 MG TAB PO PRN (12:40)
--- NOTE | 2020-10-14 13:31 | CR ---
CONSULTATION DATE: 10/14/2020 REASON FOR CONSULTATION: Right foot infection. HISTORY OF PRESENT ILLNESS: Arcenio Arias is a 65-year-old male who had recent hammertoe surgery by Dr. Rivas in [place], date was performed 09/30/2020. He states he followed with her a few days after the surgery and states the foot was doing well, however on subsequent follow-up he had developed worsening pain and states the toe became more discolored. He had a K-wire in the second toe which was removed by Dr. Rivas in her office on the . He had worsening pain and went to the ER for evaluation. PAST MEDICAL HISTORY: Significant for GERD, nephrolithiasis and Meniere's disease. PAST SURGICAL HISTORY: Gastric bypass and carpal tunnel release. SOCIAL HISTORY: Former smoker. Denies alcohol or other drug use. FAMILY HISTORY: Noncontributory. ALLERGIES: Penicillin, ampicillin, codeine, hydrocodone, Levaquin and oxycodone. PHYSICAL EXAMINATION: Vitals: He remained afebrile. LABS: White blood cell count is 8 on admission, 7.7 today, ESR is 10. CRP marginally elevated at 2.2, hemoglobin A1c is 5. IMAGING STUDIES: Toe x-rays: On the third toe there is resection of the head of the proximal phalanx which is consistent with a third toe arthroplasty, on the second toe there is apparent fusion of the proximal and middle phalanx which is consistent with a hammertoe arthrodesis. Previous surgical correction noted to the proximal phalanx of the hallux. There is no obvious erosive changes that would be unexpected given patient's surgical procedures. MRI was performed with findings suggestive of cellulitis. There are bony changes which the radiologist states are concerning for osteomyelitis, however these are largely most likely related to the hammertoe procedure. Arterial studies were ordered which were all essentially normal and a venous ultrasound was negative for DVT. Lower extremity examination: There is erythema and edema to the right forefoot. There is swelling and redness to the right second and third toes where surgery was performed and at the distal aspect of the second toe there are gangrenous changes with virtually no capillary refill to the distal toe. ASSESSMENT: This is a 65-year-old male who underwent recent hammertoe surgery with cellulitis and gangrene to the right second toe. TREATMENT: At this time it appears the gangrene was more related to surgical changes than infection however I cannot say this with definity as I had not seen his previous postoperative changes so I cannot discern this entirely. I do not feel that the gangrene requires urgent resection as it does not appear to be wet, it is more vascular gangrene than infections. I would continue the current antibiotics Vancomycin. Will monitor him closely. In terms of pain control, options are limited given his allergies to codeine. Start Lidocaine patch and Tylenol and can continue with Toradol. Will follow. He may ultimately require second toe amputation but ideally this should be performed when some of the infection has improved or there is risk of requiring further amputation if things do not heal well. Will follow.
[2020-10-14] MEDS: LIDOCAINE 5% (LIDODERM) PATCH TD SCH (13:52)
[2020-10-14 16:00] VITALS: BP 135/76
[2020-10-14 20:00] VITALS: BP 140/80
[2020-10-14] MEDS: **NOTE PATIENT COMMENT** MISC XX SCH (21:56)
[2020-10-15] VITALS: BP 143/83
[2020-10-15] MEDS: VANCOMYCIN HCL 1,000 MG, VIAL MATE ADAPTER 1 EACH in NS 250 ML IV SCH ×3 (04:42→20:28)
[2020-10-15] MEDS: KETOROLAC 30 MG/ML 1ML VIAL IV SCH ×4 (04:43→22:08)
[2020-10-15 05:56] LABS: BASO % 0.1 % (0.0-1.0); HEMATOCRIT 41.5 % (42.0-52.0); LYMPH # 0.9 10^3/uL (1.5-5.0); LYMPH % 9.1 % (24.0-44.0); MEAN CORPUSCULAR HEMOGLOBIN 30.8 pg (27.0-33.0); MEAN CORPUSCULAR HGB CONC 33.7 g/dl (32.0-36.5); MEAN CORPUSCULAR VOLUME 91.4 fl (80.0-96.0); MONO # 0.6 10^3/uL (0.0-0.8); MONO % 5.5 % (2.0-8.0); NEUTROPHILS # 8.7 10^3/uL (1.5-8.5); NEUTROPHILS % 84.7 % (36.0-66.0); PLATELET COUNT, AUTOMATED 202 10^3/uL (150-450); RED BLOOD COUNT 4.54 10^6/uL (4.30-6.10); WHITE BLOOD COUNT 10.3 10^3/uL (4.0-10.0)
[2020-10-15 06:17] LABS: ALBUMIN 3.5 GM/DL (3.2-5.2); ALT/SGPT 26 U/L (12-78); BILIRUBIN,TOTAL 0.5 MG/DL (0.2-1.0); BLOOD UREA NITROGEN 21 MG/DL (7-18); C REACTIVE PROTEIN QUANTITATIV 2.93 MG/DL (0.00-0.30); CALCIUM LEVEL 8.7 MG/DL (8.8-10.2); CARBON DIOXIDE LEVEL 30 MEQ/L (21-32); CHLORIDE LEVEL 107 MEQ/L (98-107); CREATININE FOR GFR 0.84 MG/DL (0.70-1.30); GLOMERULAR FILTRATION RATE > 60.0 (>49); GLUCOSE, FASTING 117 MG/DL (70-100); MAGNESIUM LEVEL 2.4 MG/DL (1.8-2.4); POTASSIUM SERUM 4.9 MEQ/L (3.5-5.1); SODIUM LEVEL 140 MEQ/L (136-145); TOTAL PROTEIN 6.2 GM/DL (6.4-8.2)
[2020-10-15 07:50] VITALS: BP 121/73
[2020-10-15 08:04] LABS: ERYTHROCYTE SEDIMENTATION RATE 12 mm/hr (0-20)
[2020-10-15] MEDS: SUCRALFATE 1 GM TAB PO SCH ×4 (08:08→20:29)
[2020-10-15] MEDS: buPROPion **XL** TABLET 150MG (WELLBUTRIN XL) PO SCH ×2 (08:08→20:29)
[2020-10-15] MEDS: LORATADINE 10 MG TAB PO SCH (08:08)
[2020-10-15] MEDS: MULTIVITAMINS/MINERALS THERAP 1 TAB PO SCH (08:08)
[2020-10-15] MEDS: CitaloPRAM (CeleXA) 20 MG TAB PO SCH (08:09)
[2020-10-15] MEDS: DOCUSATE SODIUM 100MG CAPSULE PO SCH ×2 (08:09→20:29)
[2020-10-15] MEDS: GABAPENTIN 300 MG CAP PO SCH ×3 (08:09→20:29)
[2020-10-15] MEDS: LIDOCAINE 5% (LIDODERM) PATCH TD SCH (08:09)
[2020-10-15] MEDS: VITAMIN D 1,000 INTERNATIONAL UNITS TABLET PO SCH (08:09)
[2020-10-15] MEDS: PANTOPRAZOLE 40MG VIAL (C9113 PER 1) IV SCH ×2 (08:09→20:29)
[2020-10-15 11:30] VITALS: BP 116/77
--- NOTE | 2020-10-15 11:37 | IPN ---
PROGRESS NOTE DATE: 10/15/2020 SUBJECTIVE: Patient seen and examined. States he is having a lot less pain today. He states overall he is feeling better. OBJECTIVE: Vitals are reviewed. He has been afebrile. Lower extremity examination: Erythema and edema are improved from previously demarcated line. The right 2nd toe remains gangrenous but there is no further proximal spread. Labs are reviewed. White blood cell count slightly elevated at 10.3 and CRP is slightly increased to 2.93. Blood cultures show no growth. ASSESSMENT: 65-year-old male with cellulitis and gangrene after hammertoe surgery. PLAN: Continue antibiotics. Presently he is on Vancomycin. I suspect that he could probably be switched to Linezolid starting tomorrow if he is doing well. The toe is not in emergent need for amputation. Ideally the swelling and infection will be more resolved prior to this to better ensure likelihood of healing. Will follow tomorrow.
[2020-10-15] MEDS ORDERED: CALCIUM CARBONATE 500 MG CHEW U/D PO PRN (12:35)
[2020-10-15] MEDS ORDERED: CALCIUM CARBONATE 500 MG CHEW U/D PO ONE (12:35)
[2020-10-15] MEDS: **NOTE PATIENT COMMENT** MISC XX SCH (20:29)
[2020-10-15 22:00] VITALS: BP 130/72
[2020-10-16 00:09] VITALS: O2SAT 97
[2020-10-16] MEDS: VANCOMYCIN HCL 1,000 MG, VIAL MATE ADAPTER 1 EACH in NS 250 ML IV SCH (04:11)
[2020-10-16] MEDS: KETOROLAC 30 MG/ML 1ML VIAL IV SCH ×4 (04:11→22:33)
[2020-10-16 06:50] LABS: BASO % 0.6 % (0.0-1.0); EOS # 0.3 10^3/uL (0.0-0.5); HEMATOCRIT 39.8 % (42.0-52.0); HEMOGLOBIN 13.6 g/dl (13.5-17.5); LYMPH # 1.9 10^3/uL (1.5-5.0); MEAN CORPUSCULAR HEMOGLOBIN 31.9 pg (27.0-33.0); MEAN CORPUSCULAR HGB CONC 34.2 g/dl (32.0-36.5); MEAN CORPUSCULAR VOLUME 93.2 fl (80.0-96.0); MONO # 0.4 10^3/uL (0.0-0.8); MONO % 6.8 % (2.0-8.0); NEUTROPHILS # 3.7 10^3/uL (1.5-8.5); NEUTROPHILS % 58.1 % (36.0-66.0); PLATELET COUNT, AUTOMATED 177 10^3/uL (150-450); RED BLOOD COUNT 4.27 10^6/uL (4.30-6.10); WHITE BLOOD COUNT 6.3 10^3/uL (4.0-10.0)
[2020-10-16] MEDS ORDERED: ZYVO1TAB PO (07:11)
[2020-10-16] MEDS ORDERED: BACI1CAP PO (07:11)
[2020-10-16 07:21] LABS: ERYTHROCYTE SEDIMENTATION RATE 9 mm/hr (0-20)
[2020-10-16 07:23] LABS: ALBUMIN 3.2 GM/DL (3.2-5.2); ALT/SGPT 23 U/L (12-78); BILIRUBIN,TOTAL 0.4 MG/DL (0.2-1.0); BLOOD UREA NITROGEN 22 MG/DL (7-18); C REACTIVE PROTEIN QUANTITATIV 1.24 MG/DL (0.00-0.30); CALCIUM LEVEL 8.2 MG/DL (8.8-10.2); CARBON DIOXIDE LEVEL 31 MEQ/L (21-32); CHLORIDE LEVEL 108 MEQ/L (98-107); CREATININE FOR GFR 0.96 MG/DL (0.70-1.30); GLOMERULAR FILTRATION RATE > 60.0 (>49); GLUCOSE, FASTING 96 MG/DL (70-100); MAGNESIUM LEVEL 2.2 MG/DL (1.8-2.4); POTASSIUM SERUM 4.3 MEQ/L (3.5-5.1); SODIUM LEVEL 143 MEQ/L (136-145); TOTAL PROTEIN 5.6 GM/DL (6.4-8.2)
[2020-10-16] MEDS: PANTOPRAZOLE 40MG VIAL (C9113 PER 1) IV SCH ×2 (07:53→20:14)
[2020-10-16] MEDS: LIDOCAINE 5% (LIDODERM) PATCH TD SCH (07:53)
[2020-10-16] MEDS: LINEZOLID 600MG TABLET (ZYVOX) PO SCH ×2 (07:53→20:15)
[2020-10-16] MEDS: MULTIVITAMINS/MINERALS THERAP 1 TAB PO SCH (07:53)
[2020-10-16] MEDS: SUCRALFATE 1 GM TAB PO SCH ×4 (07:53→20:14)
[2020-10-16] MEDS: GABAPENTIN 300 MG CAP PO SCH ×3 (07:54→20:14)
[2020-10-16] MEDS: VITAMIN D 1,000 INTERNATIONAL UNITS TABLET PO SCH (07:54)
[2020-10-16] MEDS: DOCUSATE SODIUM 100MG CAPSULE PO SCH ×2 (07:54→20:14)
[2020-10-16] MEDS: LORATADINE 10 MG TAB PO SCH (07:54)
--- NOTE | 2020-10-16 09:38 | IPN ---
PROGRESS NOTE DATE: 10/16/2020 SUBJECTIVE: The patient complains of 5/10 pain at the left foot but tolerable, no fever, no chills overnight. The patient requested his calcium tablets and most of his medications be restarted yesterday. The patient is otherwise feeling well and is not asking for changes in his pain medications at this time. He is currently only receiving gabapentin for neuropathy and Toradol intravenously. He did not do well with hydromorphone causing chills and malaise. PHYSICAL EXAM: Vitals: Temperature 97.7, pulse 64, respiratory rate 20, blood pressure 130/72, 96% on two liters nasal cannula, 97% on room air. General: Awake, alert and oriented x3. Answered questions appropriately. Lungs: Clear to auscultation. No wheezing, rales or rhonchi. Heart: S1, S2, sinus rhythm. Abdomen: Soft, nontender, nondistended. Positive bowel sounds. Extremities: The patient has gangrene of the right second toe with significant improvement in erythema decreased edema from yesterday. Laboratory data, imaging study, microbiology have all been reviewed. ASSESSMENT AND PLAN: 1. A 65-year-old male admitted on October 13 with history of reflux, nephrolithiasis, Meniere's disease, former smoker, seen by podiatry, Dr. Rivas in [place] on 09/30/2020 for hammertoe correction and second toe removal of bone spur, possible amputation, distal phalanx of the third toe, had worsening pain of the second toe and with followup on 10/12. The patient had worsening erythema and pain, was started on clindamycin orally and Plavix for suspected thrombosis. The second toe became gangrenous with possible osteomyelitis with underlying cellulitis, entered the ER at [facility] for possible application and evaluation for osteomyelitis. 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 The patient is being treated for the following issues: Right second toe gangrene currently on vancomycin. Doing well, decreasing erythema. Dr. Dunn has been consulted and believes that this is well demarcated, does not need surgery. He agrees with transitioning to Zyvox p.o. b.i.d. 2. Chronic neuropathy on Neurontin. 3. Depression. We will need to hold patient's Wellbutrin and celexa while on Zyvox. 4. Rule out vascular disease. Arterial studies were negative. DISPOSITION: Discharge in the morning if stable. MTDD
[2020-10-16] MEDS: ACETAMINOPHEN 500 MG TAB PO PRN ×2 (11:09→20:16)
--- NOTE | 2020-10-16 13:08 | IPNPDOC ---
Date Seen The patient was seen on 10/15/20. Progress Note S: c/o 7/10 pain scale right foot pain w weight bearing and ambulation no f/c. 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 pt requesting home meds to be resumed including his calcium tabs. O: PE: vitals: see below General: Awake, alert and oriented x3. no distress HEENT: no jvd. moist mm. no cervical LAD or thyromegaly Lungs: Clear to auscultation. No wheezing, rales or rhonchi. Heart: S1, S2, sinus rhythm. Abdomen: Soft, nontender, nondistended. Positive bowel sounds. Extremities: The patient has gangrene of the right second toe with significant improvement in erythema decreased edema from yesterday. Laboratory data, imaging study, microbiology have all been reviewed. ASSESSMENT AND PLAN: A 65-year-old male admitted on October 13 with history of reflux, nephrolithiasis, Meniere's disease, former smoker, seen by podiatry, Dr. Rivas in [place] on 09/30/2020 for hammertoe correction and second toe removal of bone spur, possible amputation, distal phalanx of the third toe, had worsening pain of the second toe and with followup on 10/12. The patient had worsening erythema and pain, was started on clindamycin orally and Plavix for suspected thrombosis. The second toe became gangrenous with possible osteomyelitis with underlying cellulitis, entered the ER at [facility] for possible application and evaluation for osteomyelitis. 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 The patient is being treated for the following issues: 1. Right second toe gangrene currently on vancomycin. Dr. Dunn-no surgical intervention. continue w abx and may change to po zyvox. prn pain meds bowel regimen. vascular studies reviewed. 2. Chronic neuropathy on Neurontin. 3. Depression. on wellbutrin and celexa 4. Obesity complicating care. VS, I&O, 24H, Fishbone Vital Signs/I&O Vital Signs Date Time Temp Pulse Resp B/P (MAP) Pulse Ox O2 Delivery O2 Flow Rate FiO2 10/16/20 00:09 97 2.0 10/15/20 22:00 97.7 64 20 130/72 (91) Room Air I&O- Last 24 Hours up to 6 AM 10/16/20 06:00 Intake Total 1710 ml Output Total 400 ml Balance 1310 ml Laboratory Data 24H LABS Laboratory Tests 2 10/16/20 06:12: Immature Granulocyte % (Auto) 0.5, Neutrophils (%) (Auto) 58.1, Lymphocytes (%) (Auto) 30.0, Monocytes (%) (Auto) 6.8, Eosinophils (%) (Auto) 4.0H, Basophils (%) (Auto) 0.6, Neutrophils # (Auto) 3.7, Lymphocytes # (Auto) 1.9, Monocytes # (Auto) 0.4, Eosinophils # (Auto) 0.3, Basophils # (Auto) 0.0, Nucleated Red Blood Cells % (auto) 0.0, Erythrocyte Sedimentation Rate 9, Anion Gap 4L, Glomerular Filtration Rate > 60.0, Calcium Level 8.2L, Magnesium Level 2.2, Total Bilirubin 0.4, Aspartate Amino Transf (AST/SGOT) 15, Alanine Aminotransferase (ALT/SGPT) 23, Alkaline Phosphatase 76, C-Reactive Protein, Quantitative 1.24H, Total Protein 5.6L, Albumin 3.2, Albumin/Globulin Ratio 1.3 CBC/BMP Laboratory Tests 10/16/20 06:12 Microbiology Microbiology 10/13/20 Blood Culture - Preliminary, Resulted No Growth after 48 hours. All Specime... 10/13/20 Blood Culture - Preliminary, Resulted No Growth after 48 hours. All Specime... EDWIN CARD MD Oct 16, 2020 13:08
[2020-10-16 14:00] VITALS: BP 109/56
--- NOTE | 2020-10-16 15:22 | IPN ---
PROGRESS NOTE DATE: 10/16/2020 SUBJECTIVE: Patient seen and examined. States his pain is doing better, rates it a 4/10, improved since yesterday. OBJECTIVE: LOWER EXTREMITY EXAMINATION: Erythema and edema are nearly resolved. The remaining second toe distally appears gangrenous, although the more proximal portion of the toe does have some capillary refill. LABORATORY DATA: White blood cell count 6.3. C-reactive protein (CRP) 1.24. ASSESSMENT: A 65-year-old male status post hammer toe surgery with cellulitis and gangrene. PLAN: Patient should be okay to be discharged on linezolid tomorrow. He should follow up with his surgeon, Dr. Rivas, from [place].
[2020-10-16] MEDS: **NOTE PATIENT COMMENT** MISC XX SCH (20:16)
[2020-10-16 22:00] VITALS: BP 132/73
[2020-10-17 01:37] VITALS: O2SAT 97
[2020-10-17] MEDS: KETOROLAC 30 MG/ML 1ML VIAL IV SCH ×2 (04:37→11:30)
[2020-10-17 06:00] VITALS: BP 130/70
[2020-10-17 06:40] LABS: BASO % 0.5 % (0.0-1.0); EOS # 0.4 10^3/uL (0.0-0.5); EOS % 6.3 % (0.0-3.0); HEMATOCRIT 40.5 % (42.0-52.0); HEMOGLOBIN 13.6 g/dl (13.5-17.5); LYMPH # 1.8 10^3/uL (1.5-5.0); LYMPH % 32.3 % (24.0-44.0); MEAN CORPUSCULAR HEMOGLOBIN 30.8 pg (27.0-33.0); MEAN CORPUSCULAR HGB CONC 33.6 g/dl (32.0-36.5); MEAN CORPUSCULAR VOLUME 91.6 fl (80.0-96.0); MONO # 0.4 10^3/uL (0.0-0.8); MONO % 7.7 % (2.0-8.0); NEUTROPHILS % 52.7 % (36.0-66.0); PLATELET COUNT, AUTOMATED 194 10^3/uL (150-450); RED BLOOD COUNT 4.42 10^6/uL (4.30-6.10); WHITE BLOOD COUNT 5.7 10^3/uL (4.0-10.0)
[2020-10-17 07:02] LABS: ALBUMIN 3.1 GM/DL (3.2-5.2); ALT/SGPT 25 U/L (12-78); BILIRUBIN,TOTAL 0.5 MG/DL (0.2-1.0); BLOOD UREA NITROGEN 18 MG/DL (7-18); C REACTIVE PROTEIN QUANTITATIV 0.73 MG/DL (0.00-0.30); CALCIUM LEVEL 8.3 MG/DL (8.8-10.2); CARBON DIOXIDE LEVEL 33 MEQ/L (21-32); CHLORIDE LEVEL 107 MEQ/L (98-107); CREATININE FOR GFR 0.97 MG/DL (0.70-1.30); GLOMERULAR FILTRATION RATE > 60.0 (>49); GLUCOSE, FASTING 87 MG/DL (70-100); MAGNESIUM LEVEL 2.3 MG/DL (1.8-2.4); POTASSIUM SERUM 4.4 MEQ/L (3.5-5.1); SODIUM LEVEL 142 MEQ/L (136-145); TOTAL PROTEIN 5.5 GM/DL (6.4-8.2)
[2020-10-17 07:21] LABS: ERYTHROCYTE SEDIMENTATION RATE 9 mm/hr (0-20)
[2020-10-17] MEDS: SUCRALFATE 1 GM TAB PO SCH ×2 (08:32→11:29)
[2020-10-17] MEDS: PANTOPRAZOLE 40MG VIAL (C9113 PER 1) IV SCH (08:32)
[2020-10-17] MEDS: DOCUSATE SODIUM 100MG CAPSULE PO SCH (08:32)
[2020-10-17] MEDS: LIDOCAINE 5% (LIDODERM) PATCH TD SCH (08:32)
[2020-10-17] MEDS: LINEZOLID 600MG TABLET (ZYVOX) PO SCH (08:32)
[2020-10-17] MEDS: VITAMIN D 1,000 INTERNATIONAL UNITS TABLET PO SCH (08:33)
[2020-10-17] MEDS: GABAPENTIN 300 MG CAP PO SCH (08:33)
[2020-10-17] MEDS: LORATADINE 10 MG TAB PO SCH (08:33)
[2020-10-17] MEDS: MULTIVITAMINS/MINERALS THERAP 1 TAB PO SCH (08:33)
--- NOTE | 2020-10-17 13:03 | DSES ---
DISCHARGE SUMMARY DATE OF ADMISSION: 10/13/2020 DATE OF DISCHARGE: 10/17/2020 CONSULTING PHYSICIAN: Aurelio Dunn DPM, Community Service Coordinator. PROCEDURES: None. DISCHARGE DIAGNOSES: 1. Cellulitis of the right second toe. 2. Gangrene after hammer toe surgery. 3. History of gastroesophageal reflux. 4. Nephrolithiasis. 5. Meniere's disease. 6. Former smoker. 7. Depression. 8. Obesity. DISCHARGE MEDICATIONS: 1. Zyvox 600 twice a day. 2. Bacid 1 tablet with meals. 3. Acetaminophen 650 four times a day as needed. 4. Bupropion 150 twice a day. 5. Calcium 600 daily. 6. Vitamin D 1000 units daily. 7. Citalopram 20 daily. 8. Plavix 75 daily. 9. Nexium 40 daily. 10. Gabapentin 300 three times a day. 11. Loratadine 10 daily. 12. Multivitamin 1 tablet daily. DISCHARGE INSTRUCTIONS: 1. Follow up with primary care physician within a week. 2. Follow up with Dr. Dunn within a week for wound care. 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 Rivas in [place] on 09/30/2020 for hammer toe surgery and second toe removal of bone spur and possible amputation of the distal phalanx of the third toe. Patient had worsening pain of the second toe and had follow up on 10/12/2020. At that time he was noted to have worsening erythema and pain at he site, started on clindamycin orally and Plavix for suspected thrombosis. His second toe became gangrenous and patient was sent to the Emergency Room at [facility] [place] for possible amputation and treatment for cellulitis. MRI of the foot on 10/13/2020 showed avascular necrosis second digit with hyperintensity which could be post traumatic secondary to osteo or infection. Hospitalist admitted the patient for cellulitis and second toe gangrene on the right foot. Dr. Dunn was consulted for debridement and evaluation for amputation. Patient was started on I.V. vancomycin which was renally dosed. Dopplers of the lower extremities was negative for DVT. MRI of the foot post procedure versus osteomyelitis. Arterial Doppler showed no significant peripheral vascular disease. Patient was continued on his other home medications. Patient did not require any debridement or amputation. His white count increased to 10.3 and decreased down to 5.7 on the day of discharge. Per Dr. Dunn gangrene is well demarcated and does not require any amputation at this time or any surgical debridement. Wound care was managed by Dr. Dunn with outpatient follow up recommended and changed to Zyvox as outpatient. Patient's Wellbutrin and Celexa were discontinued due to current use of Zyvox. Patient was instructed not to take these antidepressants while on antibiotics until it is completed. Patient's pain was controlled with Toradol 30 mg I.V. q6h and I.V. fluids to prevent acute kidney injury. He had no other issues during the hospital stay aside from his insomnia. PHYSICAL EXAMINATION ON DISCHARGE: Temperature 97.7, pulse 62, respiratory rate 18, blood pressure 130/70, 96% on room air. General: Patient is awake, alert, oriented to person, place and time, answering questions appropriately. Lungs: Clear to auscultation, no wheezes, rhonchi or rales. Heart: S1 and S2, sinus rhythm. Abdomen: Soft, nontender, nondistended. Extremities: Patient's erythema and edema have completely resolved. He continues to have a right gangrenous second toe which is unchanged. LABORATORY DATA: Laboratory data and microbiology please see the chart. IMAGING STUDIES: Please see the chart. Time spent on discharge: Thirty minutes
[2020-10-17 14:00] VITALS: BP 97/62
== END 2020-10-17 15:45 | disposition home health service (06) | DRG 603 ==
LOC: M ED 15:00 → M ED INP 20:52 → M PCU 23:21 → M MS5PR 10-15 11:35
PROVIDERS: ADMIT Family Medicine; ATTEND General Practice
DX: L03.031 Cellulitis of right toe (principal); E66.9 Obesity, unspecified; F32.9 Major depressive disorder, single episode, unspecified; Z87.891 Personal history of nicotine dependence; K21.9 Gastro-esophageal reflux disease without esophagitis; Z79.899 Other long term (current) drug therapy; H81.09 Meniere's disease, unspecified ear; Z88.0 Allergy status to penicillin; Z88.5 Allergy status to narcotic agent; G62.9 Polyneuropathy, unspecified

== ENCOUNTER 2020-10-19 14:39 | Emergency (ER) | payer OTHER ==
[~2020-10-19] VITALS: Ht 172.7 cm; Wt 108.2 kg
[~2020-10-19 14:39] MED LIST changes: +ACET1TAB55 PO; +BACI1CAP PO; +CALC-211 PO; +CLIN150C15 PO; +CLIN300C6 PO; +D31000TA2 PO; +GABA-282 PO; +PLAV1TAB2 PO; +VITMTA PO; +ZYVO1TAB PO
[2020-10-19 18:32] LABS: BASO % 0.6 % (0.0-1.0); EOS # 0.3 10^3/uL (0.0-0.5); EOS % 3.9 % (0.0-3.0); HEMATOCRIT 44.6 % (42.0-52.0); HEMOGLOBIN 15.5 g/dl (13.5-17.5); LYMPH # 1.9 10^3/uL (1.5-5.0); LYMPH % 28.9 % (24.0-44.0); MEAN CORPUSCULAR HEMOGLOBIN 31.6 pg (27.0-33.0); MEAN CORPUSCULAR HGB CONC 34.8 g/dl (32.0-36.5); MEAN CORPUSCULAR VOLUME 90.8 fl (80.0-96.0); MONO # 0.4 10^3/uL (0.0-0.8); MONO % 5.7 % (2.0-8.0); NEUTROPHILS % 60.5 % (36.0-66.0); PLATELET COUNT, AUTOMATED 242 10^3/uL (150-450); RED BLOOD COUNT 4.91 10^6/uL (4.30-6.10); WHITE BLOOD COUNT 6.7 10^3/uL (4.0-10.0)
[2020-10-19 18:49] LABS: ERYTHROCYTE SEDIMENTATION RATE 6 mm/hr (0-20)
[2020-10-19 19:20] LABS: ALT/SGPT 34 U/L (12-78); BILIRUBIN,DIRECT 0.2 MG/DL (0.0-0.2); BILIRUBIN,TOTAL 0.4 MG/DL (0.2-1.0); BLOOD UREA NITROGEN 20 MG/DL (7-18); CALCIUM LEVEL 8.6 MG/DL (8.8-10.2); CARBON DIOXIDE LEVEL 27 MEQ/L (21-32); CHLORIDE LEVEL 109 MEQ/L (98-107); CREATININE FOR GFR 0.95 MG/DL (0.70-1.30); GLOMERULAR FILTRATION RATE > 60.0 (>49); GLUCOSE, FASTING 88 MG/DL (70-100); POTASSIUM SERUM 4.4 MEQ/L (3.5-5.1); SODIUM LEVEL 141 MEQ/L (136-145); TOTAL PROTEIN 6.9 GM/DL (6.4-8.2)
[2020-10-19] MEDS ORDERED: VANCOMYCIN HCL 2,000 MG in IV FLUID PLACE HOLDER 1 EA IV ONE (20:40)
[2020-10-19] MEDS ORDERED: NITROGLYCERIN 2% OINT 1 GM *U/D* PKT TOP ONE (20:50)
[2020-10-19] MEDS ORDERED: VANCOMYCIN HCL 1,000 MG, VIAL MATE ADAPTER 1 EACH in NS 250 ML IV ONE ×2 (21:00→22:00)
[2020-10-19 21:13] VITALS: BP 143/73
[2020-10-19] MEDS ORDERED: NITR2OI TOP (21:34)
[2020-10-19 23:39] VITALS: BP 131/68
== END 2020-10-19 23:45 | disposition home or self-care (01) ==
LOC: M ED 14:39
DX: I96 Gangrene, not elsewhere classified (principal); L03.115 Cellulitis of right lower limb; Z98.84 Bariatric surgery status; Z79.899 Other long term (current) drug therapy; Z88.0 Allergy status to penicillin; Z88.5 Allergy status to narcotic agent; Z88.8 Allergy status to other drugs, medicaments and biological substances
CPT/HCPCS: 80048; 80076; 83605; 85025; 85652; 86140; 87040; 96365; 96366; 99284; J3370

== ENCOUNTER → 2020-12-30 | Outpatient (REF) | payer OTHER ==
[~2020-12-30] MED LIST changes: -CLIN150C15 PO; +CLIN150C17 PO; +NITR2OI TOP
== END ==
LOC: M LAB REF 17:00
PROVIDERS: ATTEND Otolaryngology
DX: J31.0 Chronic rhinitis (principal)

== ENCOUNTER → 2021-05-26 | Outpatient (CLI) | payer OTHER ==
[~2021-05-26] MED LIST changes: +CLIN-250 PO; -CLIN300C6 PO
== END ==
LOC: M EKG 10:26
PROVIDERS: ATTEND Otolaryngology
DX: Z01.818 Encounter for other preprocedural examination (principal); I45.19 Other right bundle-branch block

== ENCOUNTER → 2021-05-26 | Outpatient (CLI) | payer OTHER | LOC: M LABSMTC 10:07 | PROVIDERS: ATTEND Anesthesiology | DX: Z01.818 Encounter for other preprocedural examination (principal); Z11.52 Encounter for screening for COVID-19 ==

== ENCOUNTER 2021-05-31 08:30 | Day surgery (SDC) | payer OTHER ==
[~2021-05-31] VITALS: Ht 174 cm; Wt 108.4 kg
[~2021-05-31 08:30] MED LIST changes: +LR 1,000 ML IV ONE
[2021-05-31] MEDS ORDERED: propofoL 200 MG/20 ML VIAL As Ordered ONE ×2 (08:43→11:13)
[2021-05-31] MEDS ORDERED: LIDOCAINE 2% 100MG/5ML SDV (FOR ANES.) As Ordered ONE (08:44)
[2021-05-31] MEDS ORDERED: ROCURONIUM BROMIDE 50 MG/5 ML VIAL As Ordered ONE (08:44)
[2021-05-31] MEDS ORDERED: dexameTHASONE 4 MG/ML 1ML VIAL (J1100 PER 1MG) As Ordered ONE ×2 (08:44→08:46)
[2021-05-31] MEDS ORDERED: ONDANSETRON 4MG/2ML VIAL As Ordered ONE (08:44)
[2021-05-31] MEDS ORDERED: MIDAZOLAM INJ 2MG/2ML VIAL (J2250 PER 1MG) As Ordered ONE (08:46)
[2021-05-31] MEDS ORDERED: fentaNYL 100 MCG/2 ML INJECTION As Ordered ONE (08:47)
[2021-05-31] MEDS ORDERED: SUGAMMADEX SODIUM 500 MG/5 ML VIAL (BRIDION) As Ordered ONE (09:03)
[2021-05-31 09:04] LABS: HEMATOCRIT 44.1 % (42.0-52.0); HEMOGLOBIN 15.4 g/dl (13.5-17.5); MEAN CORPUSCULAR HGB CONC 34.9 g/dl (32.0-36.5); MEAN CORPUSCULAR VOLUME 88.9 fl (80.0-96.0); PLATELET COUNT, AUTOMATED 248 10^3/uL (150-450); RED BLOOD COUNT 4.96 10^6/uL (4.30-6.10); WHITE BLOOD COUNT 7.2 10^3/uL (4.0-10.0)
[2021-05-31 09:22] LABS: BLOOD UREA NITROGEN 16 MG/DL (7-18); CALCIUM LEVEL 8.6 MG/DL (8.8-10.2); CARBON DIOXIDE LEVEL 28 MEQ/L (21-32); CHLORIDE LEVEL 110 MEQ/L (98-107); CREATININE FOR GFR 0.97 MG/DL (0.70-1.30); GLOMERULAR FILTRATION RATE > 60.0 (>49); GLUCOSE, FASTING 96 MG/DL (70-100); POTASSIUM SERUM 4.1 MEQ/L (3.5-5.1); SODIUM LEVEL 144 MEQ/L (136-145)
[2021-05-31] MEDS ORDERED: METHYLENE BLUE 0.5% (5MG/ML) 10 ML AMP (PROVAYBLUE) As Ordered ONE (09:31)
[2021-05-31] MEDS ORDERED: LIDOCAINE W/EPINEPHRINE 1% 20ML VIAL As Ordered ONE (09:31)
[2021-05-31] MEDS ORDERED: EPINEPHrine 1MG/ML INJ 30ML MD-VIAL As Ordered ONE (09:31)
[2021-05-31] MEDS ORDERED: ACETAMINOPHEN 1000MG 100ML IV BTL (OFIRMEV) (J0131 PER 10MG) As Ordered ONE ×2 (10:34→12:12)
[2021-05-31] MEDS ORDERED: fentaNYL 100 MCG/2 ML INJECTION IV PRN (11:35)
[2021-05-31] MEDS ORDERED: ONDANSETRON 4MG/2ML VIAL IV PRN (11:35)
[2021-05-31] MEDS ORDERED: LR 1,000 ML IV SCH ×2 (11:35→11:45)
[2021-05-31 12:50] VITALS: BP 107/57
== END 2021-05-31 13:21 | disposition home or self-care (01) ==
LOC: M SDC 08:30
PROVIDERS: ATTEND Otolaryngology
DX: J34.2 Deviated nasal septum (principal); J34.89 Other specified disorders of nose and nasal sinuses; K21.9 Gastro-esophageal reflux disease without esophagitis; F32.A Depression, unspecified; F41.9 Anxiety disorder, unspecified; H81.09 Meniere's disease, unspecified ear; M12.9 Arthropathy, unspecified; R06.83 Snoring; Z79.899 Other long term (current) drug therapy; Z87.81 Personal history of (healed) traumatic fracture; Z88.0 Allergy status to penicillin; Z88.1 Allergy status to other antibiotic agents; Z88.5 Allergy status to narcotic agent; Z98.84 Bariatric surgery status
CPT/HCPCS: 30465; 30520; 30560; 36415; 80048; 85027; J0131; J1100; J2250; J2405; J3010; Q9968

== ENCOUNTER → 2024-11-06 | Outpatient (CLI) | payer OTHER ==
[~2024-11-06] MED LIST changes: +CLOP75TA99 PO; -D31000TA2 PO; +GABA-1172 PO; -GABA-282 PO; -LR 1,000 ML IV ONE; -PLAV1TAB2 PO; +VITA100093 PO
[2024-11-06 12:00] LABS: BASO # 0.1 10^3/uL (0.0-0.2); BASO % 0.9 % (0.0-1.0); EOS # 0.2 10^3/uL (0.0-0.5); EOS % 3.8 % (0.0-3.0); LYMPH # 1.8 10^3/uL (1.5-5.0); LYMPH % 32.1 % (24.0-44.0); MONO # 0.5 10^3/uL (0.0-0.8); MONO % 9.5 % (2.0-8.0); NEUTROPHILS # 2.9 10^3/uL (1.5-8.5); NEUTROPHILS % 53.5 % (36.0-66.0); PLATELET COUNT, AUTOMATED 233 10^3/uL (150-450)
[2024-11-06 12:26] LABS: ALT/SGPT 43.0 U/L (7.0-40); AST/SGOT 39.0 U/L (<34); CALCIUM LEVEL 9.1 MG/DL (8.3-10.6); CARBON DIOXIDE LEVEL 29.0 MMOL/L (20-31); CHLORIDE LEVEL 103.0 MMOL/L (98-107); CREATININE FOR GFR 0.99 MG/DL (0.70-1.30); GLOMERULAR FILTRATION RATE 83.5 (>49); POTASSIUM SERUM 4.0 MMOL/L (3.5-5.1); PROSTATIC SPECIFIC AG MONITOR 1.66 NG/ML (< 4.00); SODIUM LEVEL 143.0 MMOL/L (136-145)
== END ==
LOC: M WUC 09:22
PROVIDERS: ATTEND Internal Medicine
DX: Z98.84 Bariatric surgery status (principal); R35.1 Nocturia; R05.3 Chronic cough